=== PATIENT | male | born 1990 | race Caucasian/White ===

== ENCOUNTER 2018-05-29 19:56 | Emergency (ER) | payer OTHER ==
[~2018-05-29] VITALS: Ht 172.7 cm; Wt 60.3 kg
--- NOTE | ~2018-05-29 | EKG ---
[place], [place] ELECTROCARDIOGRAM REPORT NAME: RELL CHRIS UNIT #: [id number] ROOM: DOCTOR: EPIPHANY DRAFT REPORT BIRTHDATE: [birth year] [facility] Test Date: 2018-05-29 Test Time: 20:44:57 Pat Name: RELL CHRIS Department: Room: Gender: Education Program Manager: RESP : 1990 Requested By: NATHANIEL ROE PA-C Order Number: [id number] Reading MD: Wes Gilbert MD Measurements Intervals Jena Rate: 52 P: 60 NV: 162 QRS: 89 QRSD: 91 T: 58 QT: 401 QTc: 373 Interpretive Statements Sinus rhythm Probable left atrial enlargement ST elev, probable normal early repol pattern Baseline wander in lead(s) V4 Electronically Signed On 05-30-2018 11:07:25 PDT by Wes Gilbert MD CM:EKGRPT:ELECTROCARDIOGRAM REPORT [id number] NATHANIEL ROE PA-C EPIPHANY DRAFT REPORT NATHANIEL ROE PA-C
[~2018-05-29 19:56] MED LIST: ACYCLOVIR800 MG PO; ALBUTEROL0.09 MG/A2 INH; APHTHASOL5% MM; BACTRIM DS 8001 TA1 PO; CYCLOBENZAPRINE10 MG PO; DOXYCYCLINE HY100 M5 PO; IBU-8800 MG PO; IBUPROFEN600 MG PO; K-TAB20 MEQ PO; KEFLEX500 MG PO; KETOROLAC10 MG PO; MOTRIN800 MG PO; NAPROSYN500 MG PO; NKHM; PEPCID20 MG PO; PRILOSEC20 MG PO; PROAIR HFA8.5 GM IH; ROBITUSSIN AC 10 MG/ PO; ULTRAM50 MG PO; VICODIN 500 MG-1 TAB PO; VOLTAREN50 M1 PO; ZITHROMAX Z PA250 MG PO; ZITHROMAX250 MG PO; ZOFRAN ODT4 MG SL; Zofran4 MG PO; [UNRECOGNIZED DRUG - OTHER]
[2018-05-29 20:59] LABS: BASO # 0.1 10*3/uL (0.0-0.1); BASO % 0.6 % (0.0-1.0); EOS # 0.7 10*3/uL (0.0-0.4); EOS % 7.6 % (1.0-4.0); HEMATOCRIT 39.8 % (42.0-52.0); LYMPH # 2.3 10*3/uL (1.3-4.4); MEAN CELL VOLUME 85.8 fl (80.0-94.0); MEAN CORPUSCULAR HGB CONC 32.7 g/dl (33.0-37.0); MEAN PLATELET VOLUME 9.9 fl (9.6-12.3); MONO # 0.8 10*3/uL (0.1-1.0); MONO % 9.3 % (3.0-9.0); NEUT # 4.7 10*3/uL (2.3-7.9); NEUT % 55.3 % (47.0-73.0); PLATELET COUNT AUTOMATED 252 10*3/uL (130-400); RED BLOOD COUNT 4.64 10*6/uL (4.50-5.90); RED CELL DISTRI WIDTH 12.2 % (0-14.5); WHITE BLOOD COUNT 8.6 10*3/uL (4.8-10.8)
[2018-05-29 21:09] LABS: ACT PARTIAL THROMBO TIME 25.6 SECONDS (20.8-31.5)
[2018-05-29 21:18] LABS: ALKALINE PHOSPHATASE 70 U/L (45-117); BUN 14 mg/dl (7-24); CHLORIDE 106 mmol/L (98-107); CREATININE 0.82 mg/dL (0.70-1.30); POTASSIUM 4.1 mmol/L (3.5-5.1); SGOT/AST 48 IU/L (3-35); SGPT/ALT 28 U/L (12-78); SODIUM 141 mmol/L (136-145); TOTAL PROTEIN 7.1 gm/dL (6.4-8.2)
[2018-05-29 21:21] LABS: TROPONIN I < 0.015 ng/ml (<0.045)
== END 2018-05-29 22:09 | disposition home or self-care (01) ==
LOC: ED 19:56
PROVIDERS: Physician Assistant
DX: R55 Syncope and collapse (principal); R51 Headache; H53.2 Diplopia; Z88.8 Allergy status to other drugs, medicaments and biological substances

== ENCOUNTER 2021-05-05 04:26 | Emergency (ER) | payer OTHER | END 2021-05-05 07:38 | disposition home or self-care (01) | LOC: ED 04:26 | DX: S16.1XXA Strain of muscle, fascia and tendon at neck level, initial encounter (principal); H92.01 Otalgia, right ear; Z88.8 Allergy status to other drugs, medicaments and biological substances; X58.XXXA Exposure to other specified factors, initial encounter; Y93.89 Activity, other specified; Y92.89 Other specified places as the place of occurrence of the external cause; Y99.8 Other external cause status ==